=== PATIENT | male | born 1945 | race Caucasian/White ===

== ENCOUNTER → 2017-05-07 | Outpatient (CLI) | payer MEDICARE, BC | END | disposition home or self-care (01) | LOC: GMAB 10:44 | PROVIDERS: ATTEND Family Medicine | DX: Z12.5 Encounter for screening for malignant neoplasm of prostate (principal); I10 Essential (primary) hypertension | CPT/HCPCS: 84443; G0103 ==

== ENCOUNTER 2018-02-18 13:58 | Emergency (ER) | payer MEDICARE, BC ==
[2018-02-18 14:37] VITALS: TEMP 98; O2SAT 95
[2018-02-18] MEDS ORDERED: NYSTATIN SUSPENSION 5 ML UD MT ONE (15:22)
--- NOTE | 2018-02-18 15:27 | ED.PDOC ---
History of Present Illness - General Chief Complaint: General Time Seen by Provider: 02/18/18 15:22 Source: patient, family Exam Limitations: no limitations - History of Present Illness Initial Comments: patient comes in today with difficulty swallowing. For the past week he's been dealing with a sinus infection. He's been using sinus irrigation at home and finally went to the clinic 2 days ago and got steroids and Bactrim. Patient states after that he started noticing he was having a difficult time swallowing about 24 hours later. Patient states at first he was just bigger pieces of food but he was able to handle liquids. Today he still had a liquids but even soft foods like bread have a difficult time going down. He's had no shortness of breath, nausea or vomiting. He has never had this problem before and denies any reflux. Patient does not have any itching, wheezing, or hives. He has never taken either medication in the past. Timing/Duration: 1 week Severity: moderate Improving Factors: nothing Worsening Factors: eating Associated Symptoms: denies symptoms Home Medications: Ambulatory Orders Nystatin Suspension 10 ml MT TID 5 Days #150 ud 02/18/18 Review of Systems - Review of Systems Constitutional: States: no symptoms reported. Denies: chills, fever EENTM: States: nose congestion, throat swelling. Denies: eye pain, ear pain, nose pain, throat pain, mouth pain, mouth swelling Respiratory: States: no symptoms reported. Denies: cough, short of breath, wheezing Cardiology: Denies: chest pain, edema, palpitations Gastrointestinal/Abdominal: Denies: abdominal pain, constipation, diarrhea, nausea, vomiting Musculoskeletal: States: no symptoms reported Skin: States: no symptoms reported Past Medical History (General) - Patient Medical History Hx Diabetes: No Family Medical History - Family History Father Living Status: Hx Family Cancer: Yes Physical Exam - Physical Exam General Appearance: Alert, No apparent distress Eye Exam: bilateral normal Ears, Nose, Throat: hearing grossly normal, normal ENT inspection, normal pharynx Neck: non-tender, full range of motion, supple, normal inspection Respiratory: chest non-tender, lungs clear, normal breath sounds, no respiratory distress, no accessory muscle use Cardiovascular/Chest: normal peripheral pulses, regular rate, rhythm, no edema, no gallop, no JVD, no murmur Peripheral Pulses: radial,right: 2+, radial,left: 2+, posterior tibialis,right: 2+, posterior tibialis,left: 2+ Gastrointestinal/Abdominal: normal bowel sounds, non tender, soft, no organomegaly, no pulsatile mass 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 He does have mild erythema of the posterior pharynx and a dry pharynx and oral cavity. We discussed that he may be starting to have some symptoms of thrush as he had both the steroids and antibiotics. And no evidence of allergic reaction at this time. I've asked him to stop both medications M going to try nystatin 10 mL swish and swallow 3 times a day over the weekend. He is to return to the emergency room for worsening, shortness of breath, or overt swelling. Follow up with PCP on Wednesday to see if further treatment for his sinus infection is needed. Departure - Departure Clinical Impression: Dysphagia Qualifiers: Dysphagia type: pharyngeal phase Qualified Code(s): R13.13 - Dysphagia, pharyngeal phase Disposition: Discharge to Home or Self Care Condition: Good Departure Forms: ED Discharge - Pt. Copy, Patient Portal Self Enrollment Diet: other - soft diet as able Prescriptions: Nystatin Suspension 10 ml MT TID 5 Days #150 ud Home Medications: Ambulatory Orders Nystatin Suspension 10 ml MT TID 5 Days #150 ud 02/18/18 Additional Instructions: stop Bactrim and steroids at this time. Return to emergency room for increasing problems swallowing, shortness of breath, overt swelling or other symptoms. Follow with PCP on Wednesday to see if further treatment for his sinus infection is needed and if nystatin has been successful.
[2018-02-18 15:43] VITALS: BP 154/91
== END 2018-02-18 15:48 | disposition home or self-care (01) ==
LOC: ER 13:58
DX: R13.13 Dysphagia, pharyngeal phase (principal)

== ENCOUNTER → 2018-05-11 | Outpatient (CLI) | payer MEDICARE, BC | LOC: GMAE 13:29 | PROVIDERS: ATTEND Family Medicine | DX: Z12.5 Encounter for screening for malignant neoplasm of prostate (principal); I10 Essential (primary) hypertension | CPT/HCPCS: 84443; G0103 ==

== ENCOUNTER → 2019-05-04 | Outpatient (CLI) | payer MEDICARE, BC ==
--- NOTE | 2019-05-05 13:17 | US ---
EXAM DESCRIPTION: Soft Tissue,Extremity: ULTRASOUND. CLINICAL HISTORY: 73 years Male CELLULITIS OF RIGHT UPPER LIMB. Minimally tender over the olecranon process. Patient able to pull skin away from the bone with small palpable nodule. COMPARISON: None Available. TECHNIQUE: Transcutaneous scanning: Basurto-scale and Doppler modes. FINDINGS: Scanning over the olecranon process and olecranon fossa. Minimal soft tissue edema. Visualized bony cortex is intact. No joint effusion. The palpable subcutaneous nodule is minimally vascular measuring 1.3 x 0.5 x 1.2 cm. No distinct cyst. No calcifications. No abscess. No joint effusion. IMPRESSION: 1.3 cm hypoechoic nodule in the soft tissues, not attached to the bone. Minimal tenderness with compression. No abscess. Electronically signed by: Raghavendra Rodriguez MD 05/05/2019 1:16 PM CDT
== END ==
LOC: US 11:40
PROVIDERS: ATTEND Family Medicine
DX: L03.113 Cellulitis of right upper limb (principal); R22.31 Localized swelling, mass and lump, right upper limb

== ENCOUNTER → 2020-02-01 | Outpatient (CLI) | payer MEDICARE | LOC: GMAE 11:08 | PROVIDERS: ATTEND Family Medicine | DX: Z12.5 Encounter for screening for malignant neoplasm of prostate (principal); I10 Essential (primary) hypertension | CPT/HCPCS: 84443; G0103 ==